=== PATIENT | male | born 1980 | race African-American/Black ===

== ENCOUNTER 2018-03-13 18:06 | Inpatient (IN) ==
[2018-03-14] MEDS ORDERED: Acetaminophen 500 MG Tablet PO PRN (02:22)
[2018-03-14] MEDS ORDERED: Sod Chloride 0.9% Inj 1,000 ML IV.CONT SCH (02:30)
[2018-03-14] MEDS ORDERED: Morphine Inj 4 MG/ML Vial IV.PUSH ONE (02:30)
[2018-03-14] MEDS ORDERED: hydrALAZINE HCl Inj 20 MG/ML Vial IV.PUSH ONE (02:52)
[2018-03-14] MEDS ORDERED: Temazepam 15 MG Capsule PO ONE (02:54)
[2018-03-14] MEDS: Heparin - SQ 10,000 UNITS/ML Vial SQ SCH ×3 (03:10→18:04)
--- NOTE | 2018-03-14 03:14 | P.HP ---
History of Present Illness Service: [facility] Primary Care Physician: UNKNOWN History of Present Illness: 38-year-old male with a past medical history significant for coronary artery disease, cardiomyopathy with pacemaker/AICD, congestive heart failure, chronic kidney disease stage II and hypertension presents to the emergency department for the evaluation of chest pain. He reports the chest pain started at approximately 9 AM yesterday. He states he has felt his AICD "surging" and an electric current going through his body. When asked if his AICD discharged he answers yes. He states he feels as though his heart is pounding out of his chest. The patient complains of a constant sharp/stabbing left sided chest pain with associated shortness of breath. He also endorses accompanying headache and dizziness. Denies any vision changes. He is hypertensive on arrival with a systolic blood pressure greater than 200. He denies taking any of his medications this evening. He states he is on multiple antihypertensives but cannot remember what they all are. He does not know the dosing of his medications. The patient denies any abdominal pain. No nausea/vomiting/ diarrhea. No focal neurologic deficits. Inpatient Certification: I certify that the inpatient services were ordered in accordance with Medicare regulations governing the order. This includes certification that hospital inpatient services are reasonable and necessary and in the case of services not specified as inpatient-only under 42 CFR 419.22(n), that they are appropriately provided as inpatient services in accordance to with the 2-midnight benchmark under 43 CFR 412.3(e) Estimated Total Length of Stay (Days): 4 Plans for Post Hospital Care: Home Review of Systems All other systems reviewed negative except as stated in HPI [facility] - History History Provided By: Patient - Medical History Medical History: Medical History (Last Updated 03/14/18 @ 03:06 by Shawna Melvin MD) Cardiomyopathy Chronic kidney disease, stage II (mild) Congestive heart failure Coronary artery disease Hypertension Presence of combination internal cardiac defibrillator (ICD) and pacemaker - Surgical History Surgical History: Surgical History (Last Updated 03/14/18 @ 03:07 by Shawna Melvin MD) History of cardiac catheterization - Family History Family History: Family History (Last Updated 03/14/18 @ 03:07 by Shawna Melvin MD) Other Coronary artery disease - Tobacco History Smoking Status: Never smoker - Alcohol History How Often Do You Have a Drink Containing Alcohol: Never - Immunization History Tetanus Immunization Year if Known: 2015 Medications and Allergies Active Medications: Active Medications Acetaminophen (Tylenol) 500 mg PO Q4H PRN PRN Reason: HEADACHE Hydrocodone Bitart/Acetaminophen ([place] 7.5/325) 1 tab PO Q4H PRN PRN Reason: PAIN SCALE 1 TO 5 Clopidogrel Bisulfate (Plavix) 75 mg PO DAILY [facility] Furosemide (Lasix) 20 mg PO BID@0900,1800 [facility] Heparin Sodium (Porcine) (Heparin Inj) 5,000 units SQ Q8H [facility] Sodium Chloride (Ns Inj) 1,000 mls @ 70 mls/hr IV.CONT .[id number] [facility] Morphine Sulfate (Morphine Inj) 2 mg IV.PUSH Q3H PRN PRN Reason: pain >5 Nitroglycerin (Nitrostat Sl) 0.4 mg SL Q5M PRN PRN Reason: ANGINA Sodium Chloride (Ns Flush) 2 ml IV.FLUSH BID [facility] Sodium Chloride (Ns Flush) 2 ml IV.FLUSH PRN PRN PRN Reason: FLUSH AFTER USING IV ACCESS Allergies Allergy/AdvReac Type Severity Reaction Status Date / Time aspirin Allergy Anaphylaxis Verified 03/13/18 18:18 Exam Narrative: Gen.: No acute distress Head: Normocephalic. Atraumatic. EENT: Pupils equal round and reactive to light. Nose without drainage. Airway intact. Throat without injection. Cardiovascular: Regular rate and rhythm. No murmurs, rubs or gallops. Respiratory: Lungs clear to auscultation bilaterally. No wheezes or rhonchi. Abdomen: Soft, nontender, nondistended. No peritoneal signs. Musculoskeletal: No gross deformities. No edema. Skin: No obvious rashes or erythema. Neuro: Sensory and motor grossly intact. Cranial nerves II through XII grossly intact. Caprini VTE Risk Assessment Caprini VTE Risk Assessment: No/Low Risk (score <= 1) Caprini Risk Assessment Model: Point Value = 1 Point Value = 2 Point Value = 3 Point Value = 5 Age 41-60 Minor surgery BMI > 25 kg/m2 Swollen legs Varicose veins or History of unexplained or recurrent spontaneous Oral contraceptives or hormone replacement Sepsis (< 1 month) Serious lung disease, including pneumonia (< 1 month) Abnormal pulmonary function Acute myocardial infarction Congestive heart failure (< 1 month) History of inflammatory bowel disease Medical patient at bed rest Age 61-74 Arthroscopic surgery Major open surgery (> 45 min) Laparoscopic surgery (> 45 min) Malignancy Confined to bed (> 72 hours) Immobilizing plaster cast Central venous access Age >= 75 History of VTE Family history of VTE Factor V Leiden Prothrombin [id number] Lupus anticoagulant Anticardiolipin antibodies Elevated serum homocysteine Heparin-induced thrombocytopenia Other congenital or acquired thrombophilia Stroke (< 1 month) Elective arthroplasty Hip, pelvis, or leg fracture Acute spinal cord injury (< 1 month) Prophylaxis Regimen: Total Risk Factor Score Risk Level Prophylaxis Regimen 0-1 Low Early ambulation 2 Moderate Order ONE of the following: *Sequential Compression Device (SCD) *Heparin 5000 units SQ BID 3-4 Higher Order ONE of the following medications: *Heparin 5000 units SQ TID *Enoxaparin/Lovenox 40 mg SQ daily (WT < 150 kg, CrCl > 30 mL/min) *Enoxaparin/Lovenox 30 mg SQ daily (WT < 150 kg, CrCl > 10-29 mL/min) *Enoxaparin/Lovenox 30 mg SQ BID (WT < 150 kg, CrCl > 30 mL/min) AND/OR *Sequential Compression Device (SCD) 5 or more Highest Order ONE of the following medications: *Heparin 5000 units SQ TID (Preferred with Epidurals) *Enoxaparin/Lovenox 40 mg SQ daily (WT < 150 kg, CrCl > 30 mL/min) *Enoxaparin/Lovenox 30 mg SQ daily (WT < 150 kg, CrCl > 10-29 mL/min) *Enoxaparin/Lovenox 30 mg SQ BID (WT < 150 kg, CrCl > 30 mL/min) AND *Sequential Compression Device (SCD) Assessment and Plan - Plan Assessment/plan: 1. 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 Hypertension Patient reports he is on hydralazine, labetalol, Procardia, Lasix, Spironolactone at home He does not know dosing of any of his medications Reports he did not take any of his night doses IV hydralazine now Patient's compliance with medications is questionable Restart labetalol, add antihypertensives as needed 3. Congestive heart failure Records requested as above, patient does not know when his last echo was Continue home Lasix and spironolactone 4. Chronic kidney disease stage II BUN/creatinine 25/2.0, baseline unknown Monitor renal function FEN N.p.o. Electrolytes: Monitor and replete as needed NS at 70 cc/hour
[2018-03-14 04:18] LABS: Creatine Kinase 157 U/L (39-308)
[2018-03-14 04:22] LABS: Troponin I 0.68 ng/mL (0.02-0.05)
[2018-03-14 04:34] LABS: Creatine Kinase MB 3.1 ng/mL (0.5-3.6)
[2018-03-14 10:01] LABS: Creatine Kinase 165 U/L (39-308)
[2018-03-14 10:03] LABS: Troponin I 0.68 ng/mL (0.02-0.05)
--- NOTE | 2018-03-14 10:10 | P.CONCA ---
History of Present Illness Service: Cardiology Consult date: 03/14/18 Requesting Physician: Shawna Melvin Reason for Consult: Chest pain, AICD fired Primary Care Provider: UNKNOWN History of Present Illness: This is a 38-year-old male with a past medical history of coronary artery disease, cardiomyopathy with pacemaker/AICD, congestive heart failure, chronic kidney disease stage II and hypertension. He was at home yesterday relaxing when he felt an electrical current go through his body. He states, that he believes it was his AICD because he has experienced the same feeling one year ago. He stated that last year, his AICD fired due to ventricular tachycardia when he lived in [place]. He complained of severe left sided chest pain after he felt his AICD fire. He denied any palpitations, dizziness, edema or SOB before or after incident. Currently, he denies any CP, pressure, palpitations, dizziness, edema or SOB. He stated that approximately 20 minutes ago, he had sharp left sided chest pain that lasted a few second, no other symptoms noted. Review of Systems All other systems reviewed negative except as stated in HPI [facility] - History History Provided By: Patient - Medical History Medical History: Medical History (Last Updated 03/14/18 @ 03:06 by Shawna Melvin MD) Cardiomyopathy Chronic kidney disease, stage II (mild) Congestive heart failure Coronary artery disease Hypertension Presence of combination internal cardiac defibrillator (ICD) and pacemaker - Surgical History Surgical History: Surgical History (Last Updated 03/14/18 @ 03:07 by Shawna Melvin MD) History of cardiac catheterization - Family History Family History: Family History (Last Updated 03/14/18 @ 03:07 by Shawna Melvin MD) Other Coronary artery disease - Tobacco History Smoking Status: Never smoker - Alcohol History How Often Do You Have a Drink Containing Alcohol: Never - Immunization History Tetanus Immunization Year if Known: 2015 Medications and Allergies Allergies Allergy/AdvReac Type Severity Reaction Status Date / Time aspirin Allergy Anaphylaxis Verified 03/13/18 18:18 Active Medications: Active Medications Acetaminophen (Tylenol) 500 mg PO Q4H PRN PRN Reason: HEADACHE Hydrocodone Bitart/Acetaminophen ([place] 7.5/325) 1 tab PO Q4H PRN PRN Reason: PAIN SCALE 1 TO 5 Clopidogrel Bisulfate (Plavix) 75 mg PO DAILY [facility] Furosemide (Lasix) 20 mg PO BID@0900,1800 [facility] Heparin Sodium (Porcine) (Heparin Inj) 5,000 units SQ Q8H [facility] Last Admin: 03/14/18 03:10 Dose: 5,000 units Sodium Chloride (Ns Inj) 1,000 mls @ 70 mls/hr IV.CONT .[id number] [facility] Last Admin: 03/14/18 04:00 Dose: 70 mls/hr Labetalol HCl (Trandate) 100 mg PO BID [facility] Morphine Sulfate (Morphine Inj) 2 mg IV.PUSH Q3H PRN PRN Reason: pain >5 Nitroglycerin (Nitrostat Sl) 0.4 mg SL Q5M PRN PRN Reason: ANGINA Sodium Chloride (Ns Flush) 2 ml IV.FLUSH BID [facility] Sodium Chloride (Ns Flush) 2 ml IV.FLUSH PRN PRN PRN Reason: FLUSH AFTER USING IV ACCESS Spironolactone (Aldactone) 25 mg PO DAILY [facility] Exam Vital signs: Vital Signs 03/14/18 03:55 03/14/18 03:56 Temperature 98.5 F Pulse Rate 68 Respiratory Rate 18 17 Blood Pressure 164/122 H Intake & Output 03/13/18 03/14/18 03/14/18 18:59 06:59 18:59 Intake Total 120 / 120 Output Total 500 / 500 Balance -380 / -380 Weight 82.8 kg Intake: Oral 120 / 120 Output: Urine 500 / 500 - Constitutional no acute distress - Routine HEENT Exam Head: Present: normocephalic Eye: Present: PERRL ENT: Present: mucous membranes moist - Routine Neck Exam Present: full ROM - Routine Respiratory Exam Present: CTA bilaterally - Routine Cardiovascular Exam Present: S1, S2 - Routine Abdominal Exam Present: normoactive bowel sounds - Routine Extremities Exam Present: full ROM, pulses intact, normal capillary refill. Absent: cyanosis, clubbing, edema - Routine Skin Exam Present: intact - Routine Neurological Exam Present: oriented X3 Results Cardiac Enzymes 03/14/18 Range/Units 03:38 CK-MB (CK-2) 3.1 (0.5-3.6) ng/mL Troponin I 0.68 H* (0.02-0.05) ng/mL Intake and Output 03/13/18 03/14/18 03/14/18 22:59 06:59 14:59 Intake Total 120 / 120 Output Total 500 / 500 Balance -380 / -380 Intake: Oral 120 / 120 Output: Urine 500 / 500 Other: Weight 82.8 kg Assessment and Plan - Assessment (1) Chest pain Code(s): R07.9 - Chest pain, unspecified Status: Acute (2) Hypertension Code(s): I10 - Essential (primary) hypertension Status: Acute (3) Renal insufficiency Code(s): N28.9 - Disorder of kidney and ureter, unspecified Status: Acute (4) Defibrillator discharge Code(s): Z45.02 - Encounter for adjustment and management of automatic implantable cardiac defibrillator Status: Acute - Plan ICD evaluation done showed no evidence of shocks or arrhythmias. Troponin levels slightly elevated but not trending, no signs of ACS at this time. Requesting his records from [place], request has been sent. Continue to monitor patient on telemetry. 2D echo to evaluate LV function. We will continue to monitor patient during his hospitalization. The patient was seen and evaluated by Dr. Stephens who participated in care, management and decision making. - Attending Attestation Patient seen and examined. I reviewed and agree with the evaluation and plan as presented. ICD evaluation shows nl device fx and no shocks or arrhythmias. CP very atypical. Check echo. Obtain med records.
[2018-03-14 10:16] LABS: Creatine Kinase MB 3.7 ng/mL (0.5-3.6)
[2018-03-14] MEDS: Spironolactone 25 MG Tablet PO SCH (11:28)
[2018-03-14] MEDS: Labetalol 100 MG Tablet PO SCH ×2 (11:28→21:03)
[2018-03-14] MEDS: Furosemide 20 MG Tablet PO SCH ×2 (11:28→18:02)
--- NOTE | 2018-03-14 12:07 | P.PN ---
Subjective Interval history: Follow-up defibrillator discharge March 14, 2018-patient seen and examined, states he still feels some electrical zapping occasionally twice denies any chest pain or shortness of breath. Physical Exam Vital signs: Vital Signs 03/14/18 03:55 03/14/18 03:56 03/14/18 07:00 Temperature 98.5 F Pulse Rate 68 98 H Respiratory Rate 18 17 Blood Pressure 164/122 H Pulse Oximetry 03/14/18 08:00 03/14/18 10:00 03/14/18 11:00 Temperature 97.9 F Pulse Rate 86 96 H 91 H Respiratory Rate 18 Blood Pressure 174/130 H Pulse Oximetry 99 Intake & Output 03/13/18 03/14/18 03/14/18 18:59 06:59 18:59 Intake Total 120 / 120 Output Total 500 / 500 Balance -380 / -380 Weight 82.8 kg Intake: Oral 120 / 120 Output: Urine 500 / 500 Narrative: Gen.: No acute distress Head: Normocephalic. Atraumatic. EENT: Pupils equal round and reactive to light. Nose without drainage. Airway intact. Throat without injection. Cardiovascular: Regular rate and rhythm. No murmurs, rubs or gallops. Respiratory: Lungs clear to auscultation bilaterally. No wheezes or rhonchi. Abdomen: Soft, nontender, nondistended. No peritoneal signs. Musculoskeletal: No gross deformities. No edema. Skin: No obvious rashes or erythema. Neuro: Sensory and motor grossly intact. Cranial nerves II through XII grossly intact. Results - Labs Laboratory Results - last 24 hr 03/14/18 03/14/18 03:38 09:13 Total Creatine Kinase 157 165 CK-MB (CK-2) 3.1 3.7 H Troponin I 0.68 H* 0.68 H* Assessment and Plan - Plan 38-year-old man with Defibrillator discharge Elevated troponin I Atypical chest pain [employer] pacemaker evaluation done which showed no signs of discharge or arrhythmias. Appreciate input from cardiology Medical record requested 2D echo pending Troponin levels slightly elevated but not trending, no signs of ACS at this time. Benign labile hypertension Currently on Trandate 100 mg twice daily Will start Procardia and hydralazine until doses confirmed by patient History of congestive heart failure Continue with Lasix and Aldactone 4. Chronic kidney disease stage II BUN/creatinine 25/2.0, baseline unknown Monitor renal function
--- NOTE | 2018-03-14 12:59 | ECHRPT ---
Indication: CARDIOMYOPATHY CONCLUSIONS Severely dilated left ventricle. Moderate concentric left ventricular hypertrophy. The left ventricular systolic function is severely reduced with an estimated ejection fraction in th e range of 25-30%. There is a possible left ventricular apical thrombus noted versus more likely chordae tendineae and posterior wall coming into view. Further evaluation with cardiac MRI may be helpful if clinically indicated. The right ventricular systoilc function is moderately decreased. The left atrial size is [id number] dilated. Trace mitral valve regurgitation. Trace aortic valve regurgitation. There is estimated severe pulmonary hypertension present ( 74 mmHg). There is mild tricuspid valve regurgitation. Mild pulmonary valve regurgitation. BP: / HR: Rhythm: Technical Quality: FINDINGS LEFT VENTRICLE Severely dilated left ventricle. Moderate concentric left ventricular hypertrophy. The left ventricular systolic function is severely reduced with an estimated ejection fraction in th e range of 25-30%. There is a possible left ventricular apical thrombus noted versus more likely chordae tendineae and posterior wall coming into view. Further evaluation with cardiac MRI may be helpful if clinically indicated. RIGHT VENTRICLE The right ventricular systoilc function is moderately decreased. LEFT ATRIUM The left atrial size is ehyjymzj-[id number] dilated. RIGHT ATRIUM The right atrial size is normal. ATRIAL SEPTUM Normal atrial septal thickness without atrial level shunting by limited color doppler interrogation. AORTA The aortic root and proximal ascending aorta are normal in size on limited imaging. MITRAL VALVE Trace mitral valve regurgitation. AORTIC VALVE Trileaflet aortic valve. No aortic valve stenosis. Trace aortic valve regurgitation. TRICUSPID VALVE There is estimated severe pulmonary hypertension present ( 74 mmHg). There is mild tricuspid valve regurgitation. PULMONARY VALVE Mild pulmonary valve regurgitation. VESSELS The inferior vena cava is normal in size. PERICARDIUM No pericardial effusion. Valdemar Brown (Electronically Signed) Final Date:14 March 2018 12:57
[2018-03-14] MEDS: Labetalol HCl Inj 100 MG/20 ML Vial IV.PUSH PRN ×2 (16:10→23:43)
[2018-03-14] MEDS: hydrALAZINE 25 MG Tablet PO SCH (18:02)
[2018-03-14] MEDS ORDERED: hydrALAZINE 25 MG Tablet PO SCH (21:00)
[2018-03-14] MEDS: Morphine Inj 4 MG/ML Vial IV.PUSH PRN (23:43)
[2018-03-15 03:23] VITALS: RESP 16
[2018-03-15] MEDS: Heparin - SQ 10,000 UNITS/ML Vial SQ SCH ×2 (03:33→13:11)
[2018-03-15] MEDS: Labetalol HCl Inj 100 MG/20 ML Vial IV.PUSH PRN (05:05)
[2018-03-15] MEDS: Labetalol 100 MG Tablet PO SCH (09:15)
[2018-03-15] MEDS: hydrALAZINE 25 MG Tablet PO SCH ×2 (09:15→13:09)
[2018-03-15] MEDS: Furosemide 20 MG Tablet PO SCH (09:16)
[2018-03-15] MEDS: Spironolactone 25 MG Tablet PO SCH (09:16)
[2018-03-15] MEDS: Morphine Inj 4 MG/ML Vial IV.PUSH PRN (09:25)
[2018-03-15 10:11] LABS: Eos # (Auto) 0.1 th/mm3 (0.0-0.4); Eos % (Auto) 2.5 % (0.0-4.0); Hematocrit 40.7 % (39.0-51.0); Lymph # (Auto) 1.1 th/mm3 (1.0-4.8); Lymph % (Auto) 23.6 % (9.0-44.0); Mean Corpuscular HGB Conc 34.3 % (32.0-36.0); Mean Corpuscular Hemoglobin 29.9 pg (27.0-34.0); Mean Corpuscular Volume 87.1 fL (80.0-100.0); Mean Platelet Volume 8.4 fL (7.0-11.0); Mono # (Auto) 0.7 th/mm3 (0.0-0.9); Neut # (Auto) 2.5 th/mm3 (1.8-7.7); Neut % (Auto) 56.9 % (16.0-70.0); Platelet Count 279 th/mm3 (150-450); Red Blood Count 4.68 mil/mm3 (4.50-5.90); Red Cell Distribution Width 14.1 % (11.6-17.2); White Blood Count 4.5 th/mm3 (4.0-11.0)
[2018-03-15 10:42] LABS: Alanine Aminotransferase 60 U/L (12-78); Albumin 3.8 g/dL (3.4-5.0); Anion Gap 10 meq/L (5-15); Aspartate Aminotransferase 37 U/L (15-37); Blood Urea Nitrogen 21 mg/dL (7-18); Calcium 9.2 mg/dL (8.5-10.1); Carbon Dioxide 25.5 meq/L (21.0-32.0); Chloride 104 meq/L (98-107); Glomerular Filtration Rate 46 mL/min (>89); Glucose,Random 98 mg/dL (74-106); Potassium 3.9 meq/L (3.5-5.1); Sodium 139 meq/L (136-145)
[2018-03-15 10:45] LABS: Alkaline Phosphatase 117 U/L (45-117); Total Protein 7.9 g/dL (6.4-8.2)
--- NOTE | 2018-03-15 11:57 | P.PN ---
Subjective Interval history: Follow-up defibrillator discharge March 14, 2018-patient seen and examined, states he still feels some electrical zapping occasionally twice denies any chest pain or shortness of breath. March 15, 2018-patient seen and examined, still reporting an occasional electrical zapping any chest associated with discomfort. Physical Exam Vital signs: Vital Signs 03/14/18 15:00 03/14/18 16:00 03/14/18 16:51 Temperature 98.3 F Pulse Rate 80 78 Respiratory Rate 16 Blood Pressure 172/117 H Pulse Oximetry 99 99 03/14/18 17:00 03/14/18 18:00 03/14/18 19:00 Temperature 98.2 F Pulse Rate 77 76 81 Respiratory Rate 16 Blood Pressure 151/100 H 147/91 H Pulse Oximetry 99 03/14/18 20:00 03/14/18 21:00 03/14/18 22:00 Temperature Pulse Rate 82 82 86 Respiratory Rate Blood Pressure Pulse Oximetry 97 03/14/18 23:00 03/15/18 00:00 03/15/18 01:00 Temperature 98.0 F Pulse Rate 85 76 73 Respiratory Rate 14 Blood Pressure 149/109 H Pulse Oximetry 98 03/15/18 02:00 03/15/18 03:00 03/15/18 04:00 Temperature 98.4 F Pulse Rate 72 73 70 Respiratory Rate 16 Blood Pressure 143/100 H Pulse Oximetry 98 03/15/18 05:00 03/15/18 06:00 03/15/18 07:00 Temperature Pulse Rate 74 74 84 Respiratory Rate 16 Blood Pressure 182/127 H Pulse Oximetry 100 03/15/18 10:42 Temperature Pulse Rate Respiratory Rate Blood Pressure Pulse Oximetry 99 Intake & Output 03/14/18 03/15/18 03/15/18 18:59 06:59 18:59 Intake Total 1720 / 1720 240 / 240 Output Total 750 / 750 2049 Balance 970 / 970 -1810 / -1810 Weight 79.4 kg Intake: IV 1000 / 1000 NS Inj 1,000 ML @ 70 mls/hr IV. 1000 / 1000 CONT .[id number] [facility] Rx#:[id number] Oral 720 / 720 240 / 240 Output: Urine 750 / 750 2049 Narrative: Gen.: No acute distress Head: Normocephalic. Atraumatic. EENT: Pupils equal round and reactive to light. Nose without drainage. Airway intact. Throat without injection. Cardiovascular: Regular rate and rhythm. No murmurs, rubs or gallops. Respiratory: Lungs clear to auscultation bilaterally. No wheezes or rhonchi. Abdomen: Soft, nontender, nondistended. No peritoneal signs. Musculoskeletal: No gross deformities. No edema. Skin: No obvious rashes or erythema. Neuro: Sensory and motor grossly intact. Cranial nerves II through XII grossly intact. Results - Labs CBC & Chem 7: 03/15/18 09:40 03/15/18 09:40 Laboratory Results - last 24 hr 03/15/18 03/15/18 09:40 09:40 WBC 4.5 RBC 4.68 Hgb 14.0 Hct 40.7 MCV 87.1 MCH 29.9 MCHC 34.3 RDW 14.1 Plt Count 279 MPV 8.4 Prelim Diff (Auto) Electroplating Laborer Neut % (Auto) 56.9 Lymph % (Auto) 23.6 [place] % (Auto) 16.0 H Eos % (Auto) 2.5 Baso % (Auto) 1.0 Neut # (Auto) 2.5 Lymph # (Auto) 1.1 [place] # (Auto) 0.7 Eos # (Auto) 0.1 Baso # (Auto) 0.0 WBC Differential . Differential Comment Auto diff final Sodium 139 Potassium 3.9 Chloride 104 Carbon Dioxide 25.5 Anion Gap 10 BUN 21 H Creatinine 2.01 H Estimated GFR 46 L Random Glucose 98 Calcium 9.2 Total Bilirubin 1.0 AST 37 ALT 60 Alkaline Phosphatase 117 Total Protein 7.9 D Albumin 3.8 Assessment and Plan - Plan 38-year-old man with Defibrillator discharge Elevated troponin I Atypical chest pain [employer] pacemaker evaluation done which showed no signs of discharge or arrhythmias. Appreciate input from cardiology Medical records have been requested 2D echo with EF 25-30% Troponin levels slightly elevated but not trending, no signs of ACS at this time. Benign labile hypertension Currently on Trandate 100 mg twice daily Continue Procardia and hydralazine History of congestive heart failure Continue with Lasix and Aldactone 4. Chronic kidney disease stage II baseline unknown Monitor renal function
[2018-03-15] MEDS ORDERED: Morphine Inj 4 MG/ML Vial IV.PUSH PRN (12:15)
[2018-03-15 13:49] VITALS: BP 127/90; TEMP 98.6; O2SAT 100
[2018-03-15 14:07] VITALS: PULSE 72
--- NOTE | 2018-03-15 14:23 | P.DS ---
Date of admission: 03/14/18 01:50 Primary care physician: UNKNOWN Brief History from admission: 38-year-old male with a past medical history significant for coronary artery disease, cardiomyopathy with pacemaker/AICD, congestive heart failure, chronic kidney disease stage II and hypertension presents to the emergency department for the evaluation of chest pain. He reports the chest pain started at approximately 9 AM yesterday. He states he has felt his AICD "surging" and an electric current going through his body. When asked if his AICD discharged he answers yes. He states he feels as though his heart is pounding out of his chest. The patient complains of a constant sharp/stabbing left sided chest pain with associated shortness of breath. He also endorses accompanying headache and dizziness. Denies any vision changes. He is hypertensive on arrival with a systolic blood pressure greater than 200. He denies taking any of his medications this evening. He states he is on multiple antihypertensives but cannot remember what they all are. He does not know the dosing of his medications. The patient denies any abdominal pain. No nausea/vomiting/ diarrhea. No focal neurologic deficits. DS: Medications - Discharge Medications Prescriptions: clopidogrel [Plavix] 75 mg PO DAILY #30 tab furosemide 20 mg PO BID@0900,1800 #60 tab hydralazine 100 mg PO BID #60 mg isosorbide mononitrate 30 mg PO BID #30 mg labetalol 100 mg PO BID #60 tab lisinopril 20 mg PO BID #60 mg nifedipine [Procardia XL] 90 mg PO DAILY #30 mg simvastatin 40 mg PO DAILY #30 mg spironolactone [Aldactone] 25 mg PO DAILY #39 mg DS: Summary Hospital Course: While in hospital, patient was treated for: Defibrillator discharge Elevated troponin I Atypical chest pain [employer] pacemaker evaluation done which showed no signs of discharge or arrhythmias. Appreciate input from cardiology Medical records have been requested 2D echo with EF 25-30% Troponin levels slightly elevated but not trending, no signs of ACS at this time. Benign labile hypertension Currently on Trandate 100 mg twice daily Continue Procardia and hydralazine History of congestive heart failure Continue with Lasix and Aldactone 4. Chronic kidney disease stage II baseline unknown Monitor renal function - Time Spent with Patient Total time spent providing and/or coordinating discharge services: Less than 30 minutes Exam Vital signs: Vital Signs 03/14/18 15:00 03/14/18 16:00 03/14/18 16:51 Temperature 98.3 F Pulse Rate 80 78 Respiratory Rate 16 Blood Pressure 172/117 H Pulse Oximetry 99 99 03/14/18 17:00 03/14/18 18:00 03/14/18 19:00 Temperature 98.2 F Pulse Rate 77 76 81 Respiratory Rate 16 Blood Pressure 151/100 H 147/91 H Pulse Oximetry 99 03/14/18 20:00 03/14/18 21:00 03/14/18 22:00 Temperature Pulse Rate 82 82 86 Respiratory Rate Blood Pressure Pulse Oximetry 97 03/14/18 23:00 03/15/18 00:00 03/15/18 01:00 Temperature 98.0 F Pulse Rate 85 76 73 Respiratory Rate 14 Blood Pressure 149/109 H Pulse Oximetry 98 03/15/18 02:00 03/15/18 03:00 03/15/18 04:00 Temperature 98.4 F Pulse Rate 72 73 70 Respiratory Rate 16 Blood Pressure 143/100 H Pulse Oximetry 98 03/15/18 05:00 03/15/18 06:00 03/15/18 07:00 Temperature Pulse Rate 74 74 84 Respiratory Rate 16 Blood Pressure 182/127 H Pulse Oximetry 100 03/15/18 08:00 03/15/18 09:00 03/15/18 10:00 Temperature Pulse Rate 72 70 68 Respiratory Rate Blood Pressure Pulse Oximetry 03/15/18 10:42 03/15/18 11:00 03/15/18 12:00 Temperature 98.6 F Pulse Rate 74 72 Respiratory Rate 16 Blood Pressure 127/90 Pulse Oximetry 99 100 03/15/18 13:00 Temperature Pulse Rate 72 Respiratory Rate Blood Pressure Pulse Oximetry Intake & Output 03/14/18 03/15/18 03/15/18 18:59 06:59 18:59 Intake Total 1720 / 1720 240 / 240 Output Total 750 / 750 2049 Balance 970 / 970 -1810 / -1810 Weight 79.4 kg Intake: IV 1000 / 1000 NS Inj 1,000 ML @ 70 mls/hr IV. 1000 / 1000 CONT .[id number] [facility] Rx#:[id number] Oral 720 / 720 240 / 240 Output: Urine 750 / 750 2049 Narrative: Gen.: No acute distress Head: Normocephalic. Atraumatic. EENT: Pupils equal round and reactive to light. Nose without drainage. Airway intact. Throat without injection. Cardiovascular: Regular rate and rhythm. No murmurs, rubs or gallops. Respiratory: Lungs clear to auscultation bilaterally. No wheezes or rhonchi. Abdomen: Soft, nontender, nondistended. No peritoneal signs. Musculoskeletal: No gross deformities. No edema. Skin: No obvious rashes or erythema. Neuro: Sensory and motor grossly intact. Cranial nerves II through XII grossly intact. Results Procedures completed during hospitalization: None Labs on day of discharge: Labs from last 24 hours 03/15/18 03/15/18 09:40 09:40 WBC 4.5 RBC 4.68 Hgb 14.0 Hct 40.7 MCV 87.1 MCH 29.9 MCHC 34.3 RDW 14.1 Plt Count 279 MPV 8.4 Prelim Diff (Auto) [employer] Neut % (Auto) 56.9 Lymph % (Auto) 23.6 [place] % (Auto) 16.0 H Eos % (Auto) 2.5 Baso % (Auto) 1.0 Neut # (Auto) 2.5 Lymph # (Auto) 1.1 [place] # (Auto) 0.7 Eos # (Auto) 0.1 Baso # (Auto) 0.0 WBC Differential . Differential Comment Auto diff final Sodium 139 Potassium 3.9 Chloride 104 Carbon Dioxide 25.5 Anion Gap 10 BUN 21 H Creatinine 2.01 H Estimated GFR 46 L Random Glucose 98 Calcium 9.2 Total Bilirubin 1.0 AST 37 ALT 60 Alkaline Phosphatase 117 Total Protein 7.9 D Albumin 3.8 Discharge Plan - Discharge Disposition Patient Disposition: Discharge Home - Discharge Condition Condition: Fair - Discharge Order Discharge Orders: Discharge Order (Routine); Ordered 03/15/18 Ordered By: Oliver Johnson - Physicians Team Primary Care Provider: UNKNOWN, Attending Provider: Oliver Johnson Other Providers: China Stephens MD - Rxs /Orders / Referrals /Forms Prescriptions: New clopidogrel [Plavix] 75 mg Tablet 75 mg PO DAILY Qty: 30 RF: 3 furosemide 20 mg Tablet 20 mg PO BID@0900,1800 Qty: 60 RF: 3 labetalol 100 mg Tablet 100 mg PO BID Qty: 60 RF: 3 Continue albuterol sulfate [Ventolin HFA] 90 mcg/actuation Hfa Aerosol Inhaler 1 puff INHALATION Q4-6H PRN (Reason: Shortness Of Breath) carvedilol 25 mg Tablet 25 mg PO BID hydralazine 100 mg Tablet 100 mg PO BID Qty: 60 RF: 3 isosorbide mononitrate 30 mg Tablet Extended Release 24 Hr 30 mg PO BID Qty: 30 RF: 3 lisinopril 20 mg Tablet 20 mg PO BID Qty: 60 RF: 3 nifedipine [Procardia XL] 90 mg Tablet Extended Release 24hr 90 mg PO DAILY Qty: 30 RF: 3 simvastatin 40 mg Tablet 40 mg PO DAILY Qty: 30 RF: 3 spironolactone [Aldactone] 25 mg Tablet 25 mg PO DAILY Qty: 39 RF: 3 trazodone 150 mg Tablet 150 mg PO HS Discontinued furosemide 20 mg Tablet PO TID lidocaine [Lidocaine Pain Relief] 4 % Adhesive Patch,Medicated 1 patch TOPICAL DAILY Referrals: [facility] [Outside] - See Instructions UNKNOWN, [Primary Care Provider] - See Instructions
--- NOTE | 2018-03-15 16:00 | P.PNCA ---
Subjective Interval history: No angina, atypical R sided CP. No SOB. Medications and Allergies Allergies Allergy/AdvReac Type Severity Reaction Status Date / Time aspirin Allergy Anaphylaxis Verified 03/13/18 18:18 Home Medications Medication Instructions Recorded Confirmed Type albuterol sulfate [Ventolin HFA] 1 puff INHALATION Q4-6H PRN 03/15/18 03/15/18 History carvedilol 25 mg PO BID 03/15/18 03/15/18 History trazodone 150 mg PO HS 03/15/18 03/15/18 History Physical Exam Vital signs: Vital Signs 03/14/18 16:00 03/14/18 16:51 03/14/18 17:00 Temperature Pulse Rate 78 77 Respiratory Rate Blood Pressure Pulse Oximetry 99 03/14/18 18:00 03/14/18 19:00 03/14/18 20:00 Temperature 98.2 F Pulse Rate 76 81 82 Respiratory Rate 16 Blood Pressure 151/100 H 147/91 H Pulse Oximetry 99 97 03/14/18 21:00 03/14/18 22:00 03/14/18 23:00 Temperature 98.0 F Pulse Rate 82 86 85 Respiratory Rate 14 Blood Pressure 149/109 H Pulse Oximetry 98 03/15/18 00:00 03/15/18 01:00 03/15/18 02:00 Temperature Pulse Rate 76 73 72 Respiratory Rate Blood Pressure Pulse Oximetry 03/15/18 03:00 03/15/18 04:00 03/15/18 05:00 Temperature 98.4 F Pulse Rate 73 70 74 Respiratory Rate 16 Blood Pressure 143/100 H Pulse Oximetry 98 03/15/18 06:00 03/15/18 07:00 03/15/18 08:00 Temperature Pulse Rate 74 84 72 Respiratory Rate 16 Blood Pressure 182/127 H Pulse Oximetry 100 03/15/18 09:00 03/15/18 10:00 03/15/18 10:42 Temperature Pulse Rate 70 68 Respiratory Rate Blood Pressure Pulse Oximetry 99 03/15/18 11:00 03/15/18 12:00 03/15/18 13:00 Temperature 98.6 F Pulse Rate 74 72 72 Respiratory Rate 16 Blood Pressure 127/90 Pulse Oximetry 100 Intake & Output 03/14/18 03/15/18 03/15/18 18:59 06:59 18:59 Intake Total 1720 / 1720 240 / 240 Output Total 750 / 750 2049 Balance 970 / 970 -1810 / -1810 Weight 175 lb 0.752 oz Intake: IV 1000 / 1000 NS Inj 1,000 ML @ 70 mls/hr IV. 1000 / 1000 CONT .[id number] [facility] Rx#:[id number] Oral 720 / 720 240 / 240 Output: Urine 750 / 750 2049 Narrative: General: No acute distress Head: Normocephalic. Atraumatic. EENT: Pupils equal round and reactive to light. Cardiovascular: Regular rate and rhythm. No murmurs, rubs or gallops. Respiratory: Lungs clear to auscultation bilaterally. No wheezes or rhonchi. Abdomen: Soft, nontender, nondistended. Musculoskeletal: No gross deformities. No edema. Skin: No obvious rashes or erythema. ICD site stable. Results 03/15/18 09:40 03/15/18 09:40 Cardiac Enzymes 03/14/18 03/14/18 03/15/18 Range/Units 03:38 09:13 09:40 AST 37 (15-37) U/L CK-MB (CK-2) 3.1 3.7 H (0.5-3.6) ng/mL Troponin I 0.68 H* 0.68 H* (0.02-0.05) ng/mL CBC 03/15/18 Range/Units 09:40 WBC 4.5 (4.0-11.0) th/mm3 RBC 4.68 (4.50-5.90) mil/mm3 Hgb 14.0 (13.0-17.0) gm/dL Hct 40.7 (39.0-51.0) % Plt Count 279 (150-450) th/mm3 Neut # (Auto) 2.5 (1.8-7.7) th/mm3 Lymph # (Auto) 1.1 (1.0-4.8) th/mm3 [place] # (Auto) 0.7 (0.0-0.9) th/mm3 Eos # (Auto) 0.1 (0.0-0.4) th/mm3 Baso # (Auto) 0.0 (0.0-0.2) th/mm3 Comprehensive Metabolic Panel 03/15/18 Range/Units 09:40 Sodium 139 (136-145) meq/L Potassium 3.9 (3.5-5.1) meq/L Chloride 104 (98-107) meq/L Carbon Dioxide 25.5 (21.0-32.0) meq/L BUN 21 H (7-18) mg/dL Creatinine 2.01 H (0.60-1.30) mg/dL Calcium 9.2 (8.5-10.1) mg/dL AST 37 (15-37) U/L ALT 60 (12-78) U/L Alkaline Phosphatase 117 (45-117) U/L Total Protein 7.9 D (6.4-8.2) g/dL Albumin 3.8 (3.4-5.0) g/dL Intake and Output 03/15/18 03/15/18 03/15/18 06:59 14:59 22:59 Intake Total 240 / 240 Output Total 2049 Balance -1809 / -1809 Intake: Oral 240 / 240 Output: Urine 2049 Other: Weight 175 lb 0.752 oz Assessment and Plan - Assessment (1) Chest pain Code(s): R07.9 - Chest pain, unspecified Status: Acute (2) Hypertension Code(s): I10 - Essential (primary) hypertension Status: Acute (3) Renal insufficiency Code(s): N28.9 - Disorder of kidney and ureter, unspecified Status: Acute (4) Defibrillator discharge Code(s): Z45.02 - Encounter for adjustment and management of automatic implantable cardiac defibrillator Status: Inactive - Plan Remains stable, no evidence of ACS. ICD evaluation done showed no evidence of shocks or arrhythmias. No new cardiac issues. OK to discharge home. F/u with his primary animation director as outpatient.
== END 2018-03-15 15:35 | disposition home or self-care (01) | DRG 313 ==
LOC: NEDDLT 03-14 01:40 → HCIS 03-14 01:50
PROVIDERS: ADMIT Hospitalist; ATTEND Hospitalist
CPT/HCPCS: 80053; 82550; 82552; 84484; 85025; 93306; J0360; J1644; J2270; J7030